=== PATIENT | male | born 1950 | race Caucasian/White ===

== ENCOUNTER 2018-11-08 11:42 | Inpatient (IN) | payer OTHER ==
[~2018-11-08] VITALS: Ht 182.9 cm; Wt 102.3 kg
[2018-11-08] MEDS ORDERED: SODIUM CHLORIDE FLUSH 10ML SYR IVF ONE (12:00)
--- NOTE | 2018-11-08 12:00 | NUR ---
pt transported here from [facility] for admission to hospital. (+) trop w chest pain/epigastric pain x2 days.
--- NOTE | 2018-11-08 12:10 | NUR ---
md is at the bedside for assesment/consult.
[2018-11-08 12:40] LABS: INTERNATIONAL NORMALIZED RATIO 1.05 (0.93-1.1)
[2018-11-08 12:41] LABS: MEAN CORPUSCULAR HGB CONC 33.1 g/dL (33.2-36.2); MEAN CORPUSCULAR VOLUME 90.5 fL (81-97); MEAN PLATELET VOLUME 8.2 fL (7.4-10.4); PLATELET COUNT 167 x10^3/uL (130-400); RED BLOOD COUNT 5.06 x10^6/uL (4.38-5.82)
[2018-11-08 12:42] LABS: ALBUMIN 3.7 g/dL (3.4-5.0); ANION GAP 4 mmol/L (5-15); CALCIUM 9.6 mg/dL (8.5-10.1); CHLORIDE 104 mmol/L (98-107)
[2018-11-08 12:48] LABS: ALKALINE PHOSPHATASE 78 U/L (45-117); BILIRUBIN,TOTAL 0.5 mg/dL (0.2-1.0); CREATININE 0.98 mg/dL (0.7-1.3); TOTAL PROTEIN 6.8 g/dL (6.4-8.2)
[2018-11-08 12:49] LABS: ALANINE AMINOTRANSFERASE 25 U/L (12-78)
[2018-11-08] MEDS ORDERED: HEPARIN 5,000 UNITS/ML, 1ML IV ONE (13:00)
[2018-11-08] MEDS ORDERED: HEPARIN 25,000 UNITS/500ML PMX 500 ML IV PRN (13:00)
[2018-11-08] MEDS ORDERED: HEPARIN 5,000 UNITS/ML, 1ML IV PRN (13:00)
[2018-11-08] MEDS ORDERED: HEPARIN 5,000 UNITS/ML, 1ML ONE (13:05)
[2018-11-08] MEDS ORDERED: HEPARIN 25,000 UNITS/500ML PMX 500 ML ONE (13:05)
[2018-11-08 13:22] LABS: MD YES
[2018-11-08] MEDS ORDERED: NITROGLYCERIN 0.4 MG BOTTLE (25 TABS) SL PRN (13:30)
[2018-11-08] MEDS ORDERED: NITROGLYCERIN 5 MG/ML, 10ML ONE (13:30)
[2018-11-08] MEDS ORDERED: LIDOCAINE-MPF 1%, 5ML ONE (13:30)
[2018-11-08] MEDS ORDERED: ONDANSETRON 2MG/ML, 2ML IVPush PRN (13:30)
[2018-11-08] MEDS ORDERED: VERAPAMIL 2.5 MG/ML, 2ML ONE (13:30)
[2018-11-08] MEDS ORDERED: FENTANYL PF 100 MCG/2ML ONE (13:30)
[2018-11-08] MEDS ORDERED: ONDANSETRON ODT 4 MG PO PRN (13:30)
[2018-11-08] MEDS ORDERED: morphine SULFATE 10 MG/ML, 1ML IVPush PRN (13:30)
[2018-11-08] MEDS ORDERED: HEPARIN 1,000 UNITS/ML, 10ML ONE (13:30)
[2018-11-08] MEDS ORDERED: MIDAZOLAM 1 MG/ML, 2ML ONE ×2 (13:30→14:05)
[2018-11-08] MEDS ORDERED: BIVALIRUDIN 250 MG ONE ×2 (13:31→14:46)
--- NOTE | 2018-11-08 13:36 | NUR ---
verbal sbar report exchanged Melina KRISHNAMURTHY ([facility]) ON THE FLOOR FOR ADMSSION. WE WILL BEGIN TO PREPARE FOR TRANSPORT AT THIS TIME.
[2018-11-08 13:41] LABS: BASOS% (MANUAL) 1 % (0-1); LYMPH#(MANUAL) 7.44 x10^3/uL (1-3.4); LYMPHS% (MANUAL) 37 % (22-44); MONOS#(MANUAL) 1.41 x10^3/uL (0.3-2.7); MONOS% (MANUAL) 7 % (2-9); REACTIVE LYMPHS # (MANUAL) 2.01 x10^3/uL (0-0); REACTIVE LYMPHS % (MANUAL) 10 % (0-0); SEG#(MANUAL) 9.05 x10^3/uL (1.8-6.8); SEGS% (MANUAL) 45 % (42-75)
[2018-11-08 13:42] LABS: <PLATELET ESTIMATE> ADEQUATE; <PLT MORPHOLOGY> NORMAL PLT MORPH; <RBC MORPHOLOGY> NORMAL
[2018-11-08] MEDS ORDERED: TICAGRELOR 90 MG TABLET ONE (14:49)
[2018-11-08] MEDS ORDERED: ASPIRIN 325 MG TABLET EC ONE (14:49)
[2018-11-08] MEDS ORDERED: BIVALIRUDIN 250 MG in SODIUM CHLORIDE 0.9% 50 ML IV SCH (14:52)
[2018-11-08] MEDS ORDERED: ASPI81TA45 PO (15:51)
[2018-11-08] MEDS ORDERED: METF-649 PO (15:51)
[2018-11-08] MEDS ORDERED: LOSA1TAB2 PO (15:51)
[2018-11-08] MEDS ORDERED: OMEP40CA6 PO (15:51)
[2018-11-08] MEDS ORDERED: TAMS-11 PO (15:51)
[2018-11-08] MEDS ORDERED: ATOR20TA37 PO (15:51)
[2018-11-08] MEDS ORDERED: AMLO2.5T5 PO (15:51)
[2018-11-08] MEDS ORDERED: ACETAMINOPHEN 325 MG TABLET ONE (17:31)
[2018-11-08] MEDS: INSULIN LISPRO 100 UNITS/ML, PEN SQ-INSULIN SCH ×2 (17:36→19:53)
[2018-11-08] MEDS: ACETAMINOPHEN 325 MG TABLET PO PRN (17:36)
[2018-11-08 18:59] VITALS: BP 167/86
[2018-11-08] MEDS: ATORVASTATIN 40 MG TABLET PO SCH (19:54)
[2018-11-08] MEDS: TICAGRELOR 90 MG TABLET PO SCH (19:54)
[2018-11-08 20:25] LABS: MICROSCOPIC NOT IND
[2018-11-08 20:30] LABS: CULTURE INDICATED? NO
[2018-11-09 01:13] VITALS: BP 173/89
[2018-11-09] MEDS: OMEPRAZOLE 20 MG CAPSULE.DR PO SCH (05:49)
[2018-11-09] MEDS ORDERED: BUDE10.2 BC (05:57)
[2018-11-09] MEDS ORDERED: TIOT18CA INH (05:58)
[2018-11-09] MEDS ORDERED: ASPIRIN 81 MG TABLET EC PO SCH (06:00)
[2018-11-09 06:02] LABS: MEAN CORPUSCULAR HEMOGLOBIN 30.3 pg (27.5-34.5); MEAN CORPUSCULAR HGB CONC 33.6 g/dL (33.2-36.2); MEAN CORPUSCULAR VOLUME 90.3 fL (81-97); MEAN PLATELET VOLUME 7.9 fL (7.4-10.4); PLATELET COUNT 156 x10^3/uL (130-400); RED BLOOD COUNT 5.03 x10^6/uL (4.38-5.82); RED CELL DISTRIBUTION WIDTH 14.1 % (9.4-14.8)
[2018-11-09 06:11] LABS: CHLORIDE 107 mmol/L (98-107)
[2018-11-09 06:28] LABS: ALANINE AMINOTRANSFERASE 26 U/L (12-78); ALBUMIN 3.5 g/dL (3.4-5.0); ALKALINE PHOSPHATASE 77 U/L (45-117); ANION GAP 5 mmol/L (5-15); BILIRUBIN,TOTAL 0.6 mg/dL (0.2-1.0); CALCIUM 8.8 mg/dL (8.5-10.1); CHOL/HDL RATIO 4.8; CHOLESTEROL, TOTAL 129 mg/dL (140-239); CREATININE 0.88 mg/dL (0.7-1.3); HDL CHOL % 21 % (26-37); HDL CHOLESTEROL (DIRECT) 27 mg/dL (40-60); LDL CHOLESTEROL,CALCULATED 71 mg/dL (54-169); LDL/HDL RATIO 2.6 (0.5-3.0); THYROID STIMULATING HORMONE 0.971 mIU/L (0.358-3.740); TOTAL PROTEIN 6.7 g/dL (6.4-8.2); TRIGLYCERIDES 157 mg/dL (50-200); VLDL CHOLESTEROL 31 mg/dL (0-25)
[2018-11-09 07:20] LABS: MD YES
[2018-11-09 07:25] VITALS: BP 158/99
[2018-11-09 07:25] LABS: <PLATELET ESTIMATE> ADEQUATE; <PLT MORPHOLOGY> NORMAL PLT MORPH; <RBC MORPHOLOGY> NORMAL; LYMPH#(MANUAL) 9.02 x10^3/uL (1-3.4); LYMPHS% (MANUAL) 54 % (22-44); MONOS#(MANUAL) 0.17 x10^3/uL (0.3-2.7); MONOS% (MANUAL) 1 % (2-9); SEG#(MANUAL) 7.52 x10^3/uL (1.8-6.8); SEGS% (MANUAL) 45 % (42-75)
[2018-11-09 07:26] LABS: SMUDGE CELLS 1+
[2018-11-09] MEDS: AMLODIPINE 2.5 MG TABLET PO SCH (07:52)
[2018-11-09] MEDS: TICAGRELOR 90 MG TABLET PO SCH ×2 (07:52→21:55)
[2018-11-09] MEDS: ASPIRIN 81 MG TABLET EC PO SCH (07:52)
[2018-11-09] MEDS: PANTOPROZOLE 40MG TABLET PO SCH (07:52)
[2018-11-09] MEDS: TAMSULOSIN 0.4 MG CAP.ER.24H PO SCH (07:52)
[2018-11-09] MEDS: INSULIN LISPRO 100 UNITS/ML, PEN SQ-INSULIN SCH ×4 (07:53→21:56)
[2018-11-09 12:30] VITALS: BP 137/84
[2018-11-09] MEDS ORDERED: METOPROLOL SUCCINATE 25 MG TAB.ER.24H PO SCH (18:00)
[2018-11-09 18:33] VITALS: BP 156/83
[2018-11-09] MEDS: ATORVASTATIN 40 MG TABLET PO SCH (21:55)
[2018-11-09] MEDS: ACETAMINOPHEN 325 MG TABLET PO PRN (21:55)
[2018-11-10 03:20] VITALS: BP 146/78
[2018-11-10] MEDS: INSULIN LISPRO 100 UNITS/ML, PEN SQ-INSULIN SCH ×2 (07:00→11:00)
[2018-11-10] MEDS: OMEPRAZOLE 20 MG CAPSULE.DR PO SCH (07:22)
[2018-11-10 07:36] LABS: MEAN CORPUSCULAR HEMOGLOBIN 29.9 pg (27.5-34.5); MEAN CORPUSCULAR HGB CONC 33.1 g/dL (33.2-36.2); MEAN CORPUSCULAR VOLUME 90.3 fL (81-97); PLATELET COUNT 176 x10^3/uL (130-400); RED BLOOD COUNT 5.31 x10^6/uL (4.38-5.82); RED CELL DISTRIBUTION WIDTH 14.4 % (9.4-14.8)
[2018-11-10 07:45] LABS: ALANINE AMINOTRANSFERASE 28 U/L (12-78); ALBUMIN 3.9 g/dL (3.4-5.0); ANION GAP 4 mmol/L (5-15); CALCIUM 9.1 mg/dL (8.5-10.1); CHLORIDE 110 mmol/L (98-107); CREATININE 1.11 mg/dL (0.7-1.3)
[2018-11-10 07:47] LABS: ALKALINE PHOSPHATASE 84 U/L (45-117); BILIRUBIN,TOTAL 0.5 mg/dL (0.2-1.0)
[2018-11-10 08:11] LABS: BASOPHILS # (AUTO) 0.07 x10^3/uL (0-0.1); BASOPHILS % (AUTO) 0 % (0-1); EOSINOPHILS # (AUTO) 0.11 x10^3/uL (0-0.4); EOSINOPHILS % (AUTO) 1 % (1-7); LYMPHOCYTES # (AUTO) 10.81 x10^3/uL (1-3.4); LYMPHOCYTES % (AUTO) 56 % (22-44); MD SCAN; MONOCYTES # (AUTO) 0.76 x10^3/uL (0.2-0.8); MONOCYTES % (AUTO) 4 % (2-9); NEUTROPHILS % (AUTO) 39 % (42-75)
[2018-11-10 08:58] VITALS: BP 157/81
[2018-11-10] MEDS: TAMSULOSIN 0.4 MG CAP.ER.24H PO SCH (09:48)
[2018-11-10] MEDS: TICAGRELOR 90 MG TABLET PO SCH (09:48)
[2018-11-10] MEDS: AMLODIPINE 2.5 MG TABLET PO SCH (09:48)
[2018-11-10] MEDS: ASPIRIN 81 MG TABLET EC PO SCH (09:48)
[2018-11-10] MEDS: PANTOPROZOLE 40MG TABLET PO SCH (09:48)
[2018-11-10] MEDS ORDERED: METO25TA91 PO (11:36)
[2018-11-10] MEDS ORDERED: TICA90TA PO (11:36)
[2018-11-10] MEDS ORDERED: ATOR40TA78 PO (11:36)
[2018-11-10 13:12] VITALS: BP 131/66
== END 2018-11-10 13:40 | disposition home or self-care (01) | DRG 246 ==
LOC: ED 12:19 → EDIP 13:20 → 5SO 15:01 → DCLOUNGE 11-10 13:11
PROVIDERS: ADMIT Hospitalist; ATTEND Hospitalist
PROC: 027034Z Dilation of Coronary Artery, One Artery with Drug-eluting Intraluminal Device, Percutaneous Approach (ICD-10-PCS; principal; 2018-11-08)
PROC: 4A023N7 Measurement of Cardiac Sampling and Pressure, Left Heart, Percutaneous Approach (ICD-10-PCS; 2018-11-08)
PROC: B2111ZZ Fluoroscopy of Multiple Coronary Arteries using Low Osmolar Contrast (ICD-10-PCS; 2018-11-08)
PROC: B2151ZZ Fluoroscopy of Left Heart using Low Osmolar Contrast (ICD-10-PCS; 2018-11-08)
DX: I21.4 Non-ST elevation (NSTEMI) myocardial infarction (principal); I50.41 Acute combined systolic (congestive) and diastolic (congestive) heart failure; C91.10 Chronic lymphocytic leukemia of B-cell type not having achieved remission; E11.9 Type 2 diabetes mellitus without complications; E78.5 Hyperlipidemia, unspecified; F32.9 Major depressive disorder, single episode, unspecified; E78.00 Pure hypercholesterolemia, unspecified; I16.0 Hypertensive urgency; I49.3 Ventricular premature depolarization; K21.9 Gastro-esophageal reflux disease without esophagitis; J44.9 Chronic obstructive pulmonary disease, unspecified; G89.29 Other chronic pain; N40.0 Benign prostatic hyperplasia without lower urinary tract symptoms; I25.10 Atherosclerotic heart disease of native coronary artery without angina pectoris; H54.62 Unqualified visual loss, left eye, normal vision right eye; F43.10 Post-traumatic stress disorder, unspecified; Z87.891 Personal history of nicotine dependence; Z79.84 Long term (current) use of oral hypoglycemic drugs; Z99.81 Dependence on supplemental oxygen; Z84.1 Family history of disorders of kidney and ureter
CPT/HCPCS: 36415; 93458; 99285; C9600; 71045; 80053; 80061; 81003; 82962; 83036; 83735; 84100; 84443; 84484; 85025; 85520; 85610; 85730; 87040; 87076; 93005; 93306; 99156; 99157; C1769; C1894; G0378; J0583; J1644; J2250; J3010; C1725; C1874; C1887; Q9967

== ENCOUNTER 2018-11-12 13:32 | Inpatient (IN) | payer OTHER ==
[~2018-11-12] VITALS: Ht 182.9 cm; Wt 87.1 kg
[~2018-11-12 13:32] MED LIST: AMLO2.5T5 PO; ASPI81TA45 PO; ATOR20TA37 PO; ATOR40TA78 PO; BUDE10.2 BC; LOSA1TAB2 PO; METF-649 PO; METO25TA91 PO; OMEP40CA6 PO; TAMS-11 PO; TICA90TA PO; TIOT18CA INH
[2018-11-12] MEDS ORDERED: SODIUM CHLORIDE FLUSH 10ML SYR IVF ONE (14:00)
[2018-11-12] MEDS ORDERED: CEFTRIAXONE PMX 1GM/50ML 50 ML IVPB ONE (14:00)
--- NOTE | 2018-11-12 14:01 | NUR ---
Assumed care of patient. Patient states that Dr. Paiz ([facility]) told him he had a positive blood culture from his recent admit and needed to return to the hospital. Patient denies all complaints at this time. Placed on NIBP and pulse ox. Patient wears 2.5L NC at night and PRN. at bedside. Will continue to monitor.
[2018-11-12 14:23] LABS: MEAN CORPUSCULAR HEMOGLOBIN 29.5 pg (27.5-34.5); MEAN CORPUSCULAR HGB CONC 32.8 g/dL (33.2-36.2); MEAN CORPUSCULAR VOLUME 89.9 fL (81-97); MEAN PLATELET VOLUME 8.3 fL (7.4-10.4); PLATELET COUNT 180 x10^3/uL (130-400); RED BLOOD COUNT 4.93 x10^6/uL (4.38-5.82); RED CELL DISTRIBUTION WIDTH 14.1 % (9.4-14.8)
[2018-11-12] MEDS ORDERED: CEFTRIAXONE PMX 1GM/50ML 50 ML ONE (14:29)
[2018-11-12 14:33] LABS: ALBUMIN 3.8 g/dL (3.4-5.0); ANION GAP 9 mmol/L (5-15); CALCIUM 8.7 mg/dL (8.5-10.1); CHLORIDE 109 mmol/L (98-107); CREATININE 1.23 mg/dL (0.7-1.3)
--- NOTE | 2018-11-12 14:35 | NUR ---
Vick marie. Provided with blanket.
[2018-11-12 14:59] LABS: BASOPHILS # (AUTO) 0.03 x10^3/uL (0-0.1); BASOPHILS % (AUTO) 0 % (0-1); EOSINOPHILS % (AUTO) 1 % (1-7); LYMPHOCYTES # (AUTO) 9.32 x10^3/uL (1-3.4); LYMPHOCYTES % (AUTO) 51 % (22-44); MD SCAN; MONOCYTES % (AUTO) 3 % (2-9); NEUTROPHILS # (AUTO) 8.08 x10^3/uL (1.8-6.8); NEUTROPHILS % (AUTO) 45 % (42-75)
[2018-11-12] MEDS ORDERED: ALBUTEROL SULFATE 2.5 MG/3 ML HHN SCH (15:00)
[2018-11-12] MEDS ORDERED: hydrALAzine 20 MG/ML, 1ML IVPush PRN (15:00)
--- NOTE | 2018-11-12 15:14 | NUR ---
TP RN: [facility] [place] [facility] REVIEWING PT'S INFO PRIOR TO ACCEPTING PT.
--- NOTE | 2018-11-12 15:23 | NUR ---
at bedside. No needs.
--- NOTE | 2018-11-12 15:50 | NUR ---
TP RN: REPORT TO [facility] [employer]STATE PHOTOGRAPHERJOSÉ MIGUEL BRENNER MD IS LATAS[place]. PER IAM SANCHES, PT CANNOT BE DIRECTLY ADMITTED TO THE [facility] AND WILL BE AN ER TO ER TRANSFER. PT AND NOTIFIED OF TRANSFER, PT CHECKING WITH HIS SECONDARY INSURANCE COMPANY TO SEE IF THEY WILL BE COVERED THEM IF THE PATIENT CHOOSES TO STAY HERE.
--- NOTE | 2018-11-12 16:29 | NUR ---
VSS. No needs.
--- NOTE | 2018-11-12 16:43 | NUR ---
TP RN: PT REQUESTING TO STAY AT [facility] FOR TREATMENT, REQUESTING MEDICAL BED AT THIS TIME.
[2018-11-12] MEDS ORDERED: HEPARIN 5,000 UNITS/ML, 1ML ONE (16:55)
[2018-11-12] MEDS: INSULIN LISPRO 100 UNITS/ML, PEN SQ-INSULIN SCH ×2 (17:02→21:00)
[2018-11-12] MEDS: HEPARIN 5,000 UNITS/ML, 1ML SQ SCH ×2 (17:03→23:00)
--- NOTE | 2018-11-12 17:03 | NUR ---
Heparin admin. FSBS = 83. Insulin held.
--- NOTE | 2018-11-12 17:47 | NUR ---
Report to MYRON Cardozo.
[2018-11-12] MEDS ORDERED: METOPROLOL SUCCINATE 25 MG TAB.ER.24H PO SCH (18:00)
[2018-11-12 19:35] VITALS: BP 148/71
[2018-11-12] MEDS ORDERED: ATORVASTATIN 40 MG TABLET PO SCH (21:00)
[2018-11-12] MEDS: ALBUTEROL/IPRATROPIUM 2.5MG/0.5MG, 3 ML NPPB SCH (21:00)
[2018-11-12] MEDS: BUDESONIDE 0.5 MG/2 ML INHA HHN SCH (21:00)
[2018-11-12] MEDS: SODIUM CHLORIDE 0.9% 1,000 ML IV SCH (21:36)
[2018-11-12] MEDS: TICAGRELOR 90 MG TABLET PO SCH (21:37)
[2018-11-12 22:17] VITALS: BP 148/71
[2018-11-13 01:16] VITALS: BP 148/74
[2018-11-13] MEDS: ALBUTEROL/IPRATROPIUM 2.5MG/0.5MG, 3 ML NPPB SCH ×2 (03:00→09:00)
[2018-11-13 06:07] LABS: MEAN CORPUSCULAR HEMOGLOBIN 29.5 pg (27.5-34.5); MEAN CORPUSCULAR HGB CONC 32.3 g/dL (33.2-36.2); MEAN CORPUSCULAR VOLUME 91.4 fL (81-97); MEAN PLATELET VOLUME 8.1 fL (7.4-10.4); PLATELET COUNT 160 x10^3/uL (130-400); RED BLOOD COUNT 4.58 x10^6/uL (4.38-5.82); RED CELL DISTRIBUTION WIDTH 14.2 % (9.4-14.8)
[2018-11-13 06:20] LABS: ALANINE AMINOTRANSFERASE 29 U/L (12-78); ALBUMIN 3.4 g/dL (3.4-5.0); ANION GAP 6 mmol/L (5-15); CALCIUM 8.5 mg/dL (8.5-10.1); CHLORIDE 113 mmol/L (98-107); CREATININE 0.96 mg/dL (0.7-1.3)
[2018-11-13 06:22] LABS: ALKALINE PHOSPHATASE 73 U/L (45-117); BILIRUBIN,TOTAL 0.2 mg/dL (0.2-1.0); TOTAL PROTEIN 6.3 g/dL (6.4-8.2)
[2018-11-13 06:47] LABS: BASOPHILS # (AUTO) 0.01 x10^3/uL (0-0.1); BASOPHILS % (AUTO) 0 % (0-1); EOSINOPHILS # (AUTO) 0.07 x10^3/uL (0-0.4); EOSINOPHILS % (AUTO) 1 % (1-7); LYMPHOCYTES % (AUTO) 59 % (22-44); MD SCAN; MONOCYTES # (AUTO) 0.59 x10^3/uL (0.2-0.8); MONOCYTES % (AUTO) 4 % (2-9); NEUTROPHILS # (AUTO) 5.43 x10^3/uL (1.8-6.8); NEUTROPHILS % (AUTO) 37 % (42-75)
[2018-11-13 07:53] VITALS: BP 156/88
[2018-11-13] MEDS: INSULIN LISPRO 100 UNITS/ML, PEN SQ-INSULIN SCH ×2 (08:40→11:05)
[2018-11-13] MEDS: HEPARIN 5,000 UNITS/ML, 1ML SQ SCH ×2 (08:45→15:10)
[2018-11-13] MEDS: TICAGRELOR 90 MG TABLET PO SCH (08:46)
[2018-11-13] MEDS ORDERED: IPRATROPIUM 0.5 MG/2.5 ML INHA HHN SCH (09:00)
[2018-11-13] MEDS ORDERED: TAMSULOSIN 0.4 MG CAP.ER.24H PO SCH (09:00)
[2018-11-13] MEDS: BUDESONIDE 0.5 MG/2 ML INHA HHN SCH (09:00)
[2018-11-13] MEDS ORDERED: OMEPRAZOLE 20 MG CAPSULE.DR PO SCH (09:00)
[2018-11-13] MEDS ORDERED: AMLODIPINE 2.5 MG TABLET PO SCH (09:00)
[2018-11-13] MEDS ORDERED: ASPIRIN 81 MG TABLET EC PO SCH (09:00)
[2018-11-13] MEDS: SODIUM CHLORIDE 0.9% 1,000 ML IV SCH (11:03)
[2018-11-13 13:51] VITALS: BP 145/73
== END 2018-11-13 15:39 | disposition home or self-care (01) | DRG 641 ==
LOC: ED 15:01 → EDIP 16:30 → 3NE 18:04
PROVIDERS: ADMIT Family Medicine; ATTEND Family Medicine
DX: E86.0 Dehydration (principal); D72.829 Elevated white blood cell count, unspecified; E11.9 Type 2 diabetes mellitus without complications; E78.00 Pure hypercholesterolemia, unspecified; E78.5 Hyperlipidemia, unspecified; I25.10 Atherosclerotic heart disease of native coronary artery without angina pectoris; F43.10 Post-traumatic stress disorder, unspecified; H54.62 Unqualified visual loss, left eye, normal vision right eye; I10 Essential (primary) hypertension; J44.9 Chronic obstructive pulmonary disease, unspecified; K21.9 Gastro-esophageal reflux disease without esophagitis; Z79.02 Long term (current) use of antithrombotics/antiplatelets; Z87.891 Personal history of nicotine dependence; Z95.5 Presence of coronary angioplasty implant and graft; I25.2 Old myocardial infarction; Z99.81 Dependence on supplemental oxygen
CPT/HCPCS: 36415; 84145; 99285; J7620; J7626; 80048; 80053; 82040; 82962; 83605; 85025; 87040; 94640; 96374; G0378; J0696; J1644; J1815; J7030

== ENCOUNTER 2020-08-30 07:41 | Outpatient (CLI) | payer OTHER ==
[~2020-08-30 07:41] MED LIST changes: -METF-649 PO; +METF-734 PO; +OMEP40CA42 PO; -OMEP40CA6 PO
== END 2020-08-30 23:59 | disposition home or self-care (01) ==
LOC: ROC 07:41
PROVIDERS: ATTEND Radiology Radiation Oncology
DX: C09.0 Malignant neoplasm of tonsillar fossa (principal)
CPT/HCPCS: 99214; G0463

== ENCOUNTER 2020-09-20 09:15 | Outpatient (CLI) | payer OTHER | END 2020-09-20 23:59 | disposition home or self-care (01) | LOC: ROC 09:15 | PROVIDERS: ATTEND Radiology Radiation Oncology | DX: Z08 Encounter for follow-up examination after completed treatment for malignant neoplasm (principal); C09.0 Malignant neoplasm of tonsillar fossa | CPT/HCPCS: 99212; G0463 ==

== ENCOUNTER → 2020-10-14 | Outpatient (CLI) | payer OTHER ==
[~2020-10-14] MED LIST changes: +ERGO50CA PO; +FENO160T PO
== END | disposition home or self-care (01) ==
LOC: CFH 10:13
PROVIDERS: ATTEND Specialist
DX: N40.0 Benign prostatic hyperplasia without lower urinary tract symptoms (principal); C91.10 Chronic lymphocytic leukemia of B-cell type not having achieved remission; C10.9 Malignant neoplasm of oropharynx, unspecified; R79.89 Other specified abnormal findings of blood chemistry
CPT/HCPCS: 76770

== ENCOUNTER 2020-11-20 09:30 | Outpatient (CLI) | payer OTHER ==
[2020-11-20] MEDS ORDERED: OXYC5TAB98 PO (14:36)
[2020-11-22] MEDS ORDERED: OXYC5TAB2 PO (15:15)
== END 2020-11-20 23:59 | disposition home or self-care (01) ==
LOC: ROC 09:30
PROVIDERS: ATTEND Radiology Radiation Oncology
DX: Z08 Encounter for follow-up examination after completed treatment for malignant neoplasm (principal); C09.0 Malignant neoplasm of tonsillar fossa; Z79.899 Other long term (current) drug therapy
CPT/HCPCS: 99212; G0463

== ENCOUNTER 2020-11-27 11:39 | Outpatient (CLI) | payer OTHER ==
[~2020-11-27 11:39] MED LIST changes: +OXYC5TAB2 PO; +OXYC5TAB98 PO
== END 2020-11-27 23:59 | disposition home or self-care (01) ==
LOC: ROC 11:39
PROVIDERS: ATTEND Radiology Radiation Oncology
DX: Z08 Encounter for follow-up examination after completed treatment for malignant neoplasm (principal); C09.0 Malignant neoplasm of tonsillar fossa; E86.0 Dehydration; Z79.899 Other long term (current) drug therapy
CPT/HCPCS: 99212; G0463

== ENCOUNTER → 2020-12-12 | Outpatient (CLI) | payer OTHER | END | disposition home or self-care (01) | LOC: ROC 07:47 | PROVIDERS: ATTEND Radiology Radiation Oncology | DX: Z08 Encounter for follow-up examination after completed treatment for malignant neoplasm (principal); C09.0 Malignant neoplasm of tonsillar fossa; E86.0 Dehydration; Z79.899 Other long term (current) drug therapy | CPT/HCPCS: 99212; 99213; G0463 ==

== ENCOUNTER 2021-01-15 09:40 | Outpatient (CLI) | payer OTHER ==
[~2021-01-15 09:40] MED LIST changes: -OMEP40CA42 PO; +OMEP40CA8 PO
== END 2021-01-15 23:59 | disposition home or self-care (01) ==
LOC: ROC 09:40
PROVIDERS: ATTEND Radiology Radiation Oncology
DX: C09.0 Malignant neoplasm of tonsillar fossa (principal); Z79.899 Other long term (current) drug therapy
CPT/HCPCS: 99212; 99213; G0463

== ENCOUNTER → 2021-03-06 | Outpatient (CLI) | payer OTHER, MEDICARE | END | disposition home or self-care (01) | LOC: PETCFH 07:44 | PROVIDERS: ATTEND Radiology Radiation Oncology | DX: C09.0 Malignant neoplasm of tonsillar fossa (principal); J84.10 Pulmonary fibrosis, unspecified; K40.90 Unilateral inguinal hernia, without obstruction or gangrene, not specified as recurrent; I70.0 Atherosclerosis of aorta; N28.89 Other specified disorders of kidney and ureter | CPT/HCPCS: 78815; A9552 ==

== ENCOUNTER → 2021-03-10 | Outpatient (CLI) | payer OTHER | END | disposition home or self-care (01) | LOC: ROC 07:58 | PROVIDERS: ATTEND Radiology Radiation Oncology | DX: C09.0 Malignant neoplasm of tonsillar fossa (principal); Z79.899 Other long term (current) drug therapy | CPT/HCPCS: 99212; G0463 ==